=== PATIENT | male | born 1950 | race Caucasian/White ===

== ENCOUNTER → 2018-05-24 16:33 | Outpatient (CLI) | payer MEDICARE, OTHER, SELFPAY ==
[2018-05-24 18:29] LABS: Anion Gap 7 (5-15); BUN 16 mg/dL (7-18); BUN/Creat Ratio 11.7 RATIO (10-20); Calcium,Total 8.6 mg/dL (8.5-10.1); Chloride 104 mmol/L (98-107); Creatinine, Serum 1.37 mg/dL (0.70-1.30); EST Glomerular Filtration Rate 55 mL/min (>60); Est Glom Filt Rate - Afr Amer 67 mL/min (>60); Glucose 105 mg/dL (74-106); Potassium 4.2 mmol/L (3.5-5.1); Sodium Level 139 mmol/L (136-145)
== END ==
PROVIDERS: Family Provider Physician Assistant; PCP Physician Assistant; Referring Provider Urology; Visit Provider Urology
DX: R33.8 Other retention of urine (principal)
CPT/HCPCS: 36415; 80048

== ENCOUNTER → 2018-05-28 06:38 | Outpatient (CLI) | payer MEDICARE, OTHER, SELFPAY ==
--- NOTE | 2018-05-28 06:45 | CT_ITS ---
STUDY: CT ABDOMEN AND PELVIS WITH CONTRAST REASON FOR EXAM: Male, 67 years old. Hydronephrosis, prostate issues, catheter in place. RADIATION DOSAGE (If Supplied By Facility): CTDIvol = ( 20.63 ) mGy, DLP = ( 2116.36 ) mGycm TECHNIQUE: Transaxial images were obtained from the dome of the diaphragm to the symphysis pubis without oral contrast. 100ML ml of Isovue 300 contrast was administered. Sagittal and coronal images were reconstructed. Individualized dose optimization techniques were used for this CT. COMPARISON: None. FINDINGS: Body wall soft tissues: No acute process. Osseous structures: No acute process. Inferior chest: No acute process. Hepatobiliary: Normal. Pancreas: Moderate pancreatic atrophy. Spleen: Normal. Adrenal glands: Normal. Urogenital: Bilateral hydronephrosis grade 2 on the right, grade 3 on the left. No renal plethora or perinephric stranding. The hydronephrosis appears to be chronic. On the right, and left, there is ectasia of the ureters with thickening and increased conspicuity of the russell of each ureter which could potentially be associated with inflammation of ascending urinary tract infection but the appearance is nonspecific and may merely be the result of chronic hydroureter. Correlate clinically for any evidence of UTI. Melo catheter in place. There is severe circumferential thickening of wall the urinary bladder suspected to reflect cystitis. The prostate is enlarged, measuring approximately 5.4 cm craniocaudal, 5.1 cm anterior-posterior, 6.2 cm transverse. Symmetric and grossly normal seminal vesicles. Pelvic floor and sidewalls and retroperitoneum: No mass or adenopathy. Vasculature: No acute process. Stomach: No acute process. Small bowel and mesentery: No acute process. Large bowel: Normal appendix, large bowel and rectum. Free fluid or free air: None. CT/Abdomen/Pelvis WITH Contrast IMPRESSION: Marked circumferential thickening of the wall the urinary bladder. Hydronephrosis and hydroureter, likely associated with the bladder wall thickening contributing to partial UPJ obstructions, chronic appearance. There is no evidence of urolithiasis. Electronically Signed: Bryce Ames, at 17:53 EDT Tel , Service support ,
== END ==
PROVIDERS: Family Provider Family Medicine; PCP Family Medicine; Referring Provider Urology; Visit Provider Urology
DX: N13.30 Unspecified hydronephrosis (principal)
CPT/HCPCS: 74177; Q9967

== ENCOUNTER → 2018-06-03 08:58 | Outpatient (CLI) | payer MEDICARE, OTHER, SELFPAY ==
--- NOTE | 2018-06-03 | IMM_PTH ---
PATIENT: JULIANN ORTA LOC: [facility] U#:[id number] AGE/SX: 74/M ROOM: RE06/03/[address]: Dr. Joshua Billingsley MD : 1950 BED: DIS: SPEC #: [id number] RECD: 06/07/18 11:18 STATUS: JARETH IKM #: [id number] JIMMIE: 06/03/18 00:[address]: Joshua Billingsley DEPT: IMMUNOHISTOCHEMISTRY RECD BY: Monse Davis ENTERED: 06/07/18 11:20 SP TYPE: IMMUNO OTHR DR: Kat Miller, ACCOUNT SOLUTIONS ANALYST-C Tissues: A - PROSTATE RIGHT B - PROSTATE RIGHT C - PROSTATE RIGHT Procedures: 34BE12 (add) P40 (add) 34BE12 (initial) PHYSICIAN & INSTITUTION [place] [id number] SPECIMEN INFORMATION: Tissue Source: A - Right apex, B - Right mid, C - Right base Clinical Info: Elevated PSA Specimen Number: [id number] A-C CPT code: 49052, 50345 x5 METHODOLOGY: Deparaffinized sections of prefer/formalin-fixed tissue or PAP/DQ stained slides are incubated with monoclonal/polyclonal antibodies/oligonucleotide probes. Localization is made via biotin free immunoperoxidase method. Appropriate controls are performed and reacted as expected. Results on target cell population are indicated in the following table: RESULTS: ANTIBODY / CLONE RESULT Block A P40 (BC28) negative 34BE12 (34BE12) negative Block B P40 (BC28) negative 34BE12 (34BE12) negative Block C P40 (BC28) negative 34BE12 (34BE12) negative These tests were developed and their performance characteristics determined by [facility]. They may not have been cleared or approved by the U.S. Food and Drug Administration. The FDA has determined that such clearance or approval is not necessary. INTERPRETATION: A. Right prostate, apex, core biopsy: Adenocarcinoma. B. Right prostate, mid, core biopsy: Adenocarcinoma. C. Right prostate, base, core biopsy: A minute focus of adenocarcinoma. SJ:jacob 06/07/18
--- NOTE | 2018-06-03 | PROSBIL_PTH ---
PATIENT: JULIANN ORTA LOC: [facility] U#:[id number] AGE/SX: 74/M ROOM: RE06/03/[address]: Dr. Joshua Billingsley MD : 1950 BED: DIS: SPEC #: [id number] RECD: 06/03/18 16:00 STATUS: JARETH KIM #: [id number] JIMMIE: 06/03/18 00:[address]: Joshua Billingsley DEPT: SURGICAL PATHOLOGY RECD BY: Nora Root ENTERED: 06/04/18 11:25 SP TYPE: PROST BX JESUSITA DR: Kat Miller, SPLIT LEATHER DEPARTMENT SUPERVISOR-C Tissues: A - PROSTATE RIGHT B - PROSTATE RIGHT C - PROSTATE RIGHT D - PROSTATE LEFT E - PROSTATE LEFT F - PROSTATE LEFT Procedures: PROSTATE BX HEADER OPERATION: Prostate biopsy PRE-OP DIAGNOSIS: Elevated PSA TISSUE SUBMITTED: A - Right apex, B - Right mid, C - Right base, D - Left apex, E - Left mid, F - Left base MICROSCOPIC DIAGNOSIS A. Right prostate, apex, core biopsy: Prostatic adenocarcinoma: [place] grade: 3+3=6 Number of cores involved: 1 out of 2 Proportion of tissue involved: ~15% Perineural invasion: Not identified. Greatest tumor length: 0.5 cm, discontinuous. 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 See comment. B. Right prostate, mid, core biopsy: Prostatic adenocarcinoma: [place] grade: 3+3=6 Number of cores involved: 1 out of 1 Proportion of tissue involved: ~5% Perineural invasion: Not identified. Greatest tumor length: 0.1 cm See comment. C. Right prostate, base, core biopsy: A minute focus of prostatic adenocarcinoma: Ganesh grade: 3+3=6 Number of cores involved: 1 out of 1 Proportion of tissue involved: <5% Perineural invasion: Not identified. Greatest tumor length: <0.1 cm See comment. D. Left prostate, apex, core biopsy: Prostatic tissue, negative for malignancy. Acute and chronic inflammation. E. Left prostate, mid, core biopsy: Prostatic tissue, negative for malignancy. Moderate acute and chronic inflammation. F. Left prostate, base, core biopsy: Prostatic tissue, negative for malignancy. Moderate acute and chronic inflammation. SJ:jacob 06/07/18 COMMENT A-C. Immunohistochemistry ([id number]) supports the above diagnosis. Case has been reviewed in consultation with Dr. Ford who concurs with the above diagnosis. IDC:AM MICROSCOPIC DESCRIPTION Slides are reviewed. GROSS DESCRIPTION A - Received is one container designated prostate, right apex. The specimen consists of two elongated fragments of light payne-white soft tissue each measuring 0.8 cm in length and 0.1 cm in diameter. The specimen is totally submitted in one cassette. B - Received is one container designated prostate, right mid. The specimen consists of one elongated fragment of light payne-white soft tissue measuring 1.5 cm in length and 0.1 cm in diameter. The specimen is totally submitted in one cassette. C - Received is one container designated prostate, right base. The specimen consists of one elongated fragment of light payne-white soft tissue measuring 1 cm in length and 0.1 cm in diameter. The specimen is totally submitted in one cassette. D - Received is one container designated prostate, left apex. The specimen consists of one elongated fragment of light payne-white soft tissue measuring 1 cm in length and 0.1 cm in diameter. The specimen is totally submitted in one cassette. E - Received is one container designated prostate, left mid. The specimen consists of one elongated fragment of light payne-white soft tissue measuring 2 cm in length and 0.1 cm in diameter. The specimen is totally submitted in one cassette. F - Received is one container designated prostate, left base. The specimen consists of one elongated fragment of light payne-white soft tissue measuring 2 cm in length and 0.1 cm in diameter. The specimen is totally submitted in one cassette. / AM:jacob 06/04/18 TC:0 CPT: G0146 ADDENDUM ADDENDUM ADDENDUM ADDENDUM ADDENDUM ADDENDUM ADDENDUM ADDENDUM 07/12/2018 13:03 ADDENDUM 07/12/2018 13:03 ADDENDUM 07/12/2018 13:03 ADDENDUM 07/12/2018 13:03 ADDENDUM 07/12/2018 13:03 An order for Oncotype testing was received from Dr. Billingsley. This necessitated case review, block and slide selection by pathologist at [facility]. Genomic Prostate Score = 42 Results of the complete Oncotype testing ([facility] report) are viewable in EMR under: Reports - Pathology - Lab Pathology Report, Scanned.
== END ==
PROVIDERS: Family Provider Family Medicine; PCP Family Medicine; Referring Provider Urology; Visit Provider Urology
DX: C61 Malignant neoplasm of prostate (principal); N42.31 Prostatic intraepithelial neoplasia
CPT/HCPCS: 88305; 88341; 88342; G0416

== ENCOUNTER → 2018-06-14 12:18 | Outpatient (CLI) | payer MEDICARE, OTHER, SELFPAY ==
[2018-06-14 14:26] LABS: Anion Gap 10 (5-15); BUN 31 mg/dL (7-18); BUN/Creat Ratio 18.1 RATIO (10-20); Calcium,Total 9.3 mg/dL (8.5-10.1); Chloride 103 mmol/L (98-107); Creatinine, Serum 1.71 mg/dL (0.70-1.30); EST Glomerular Filtration Rate 43 mL/min (>60); Est Glom Filt Rate - Afr Amer 52 mL/min (>60); Glucose 137 mg/dL (74-106); Potassium 4.1 mmol/L (3.5-5.1); Sodium Level 141 mmol/L (136-145)
== END ==
PROVIDERS: Family Provider Family Medicine; PCP Family Medicine; Referring Provider Urology; Visit Provider Urology
DX: C61 Malignant neoplasm of prostate (principal)
CPT/HCPCS: 36415; 80048

== ENCOUNTER → 2018-06-18 09:05 | Outpatient (CLI) | payer MEDICARE, OTHER, SELFPAY ==
--- NOTE | 2018-06-18 09:08 | NM_ITS ---
CLINICAL: 67-year-old male with reported history of diffuse arthralgia. WHOLE BODY 99m Tc MDP RADIONUCLIDE BONE SCINTIGRAPHY COMPARISON: CT of the abdomen-pelvis report 05/28/2018 FINDINGS: Following the intravenous administration of 27.0 mCi of 99m Tc MDP, whole body bone images reveal: 1. Increased radiopharmaceutical concentration is identified in the acromioclavicular compartment of both shoulders, lateral glenohumeral compartment of the right shoulder, the bilateral wrists, left knee. 2. The remaining skeletal structures are scintigraphically unremarkable with bilateral kidneys and urinary bladder activity identified. There is prominence (hydronephrosis) of the right and left kidney collecting systems at the level of the renal pelvis. NM/Bone Scan Whole Body IMPRESSION: 1. The increase in radiopharmaceutical concentration identified in the bilateral shoulder and wrist articulations, left knee is most consistent with degenerative arthritis. 2. There is no definitive scintigraphic evidence of large articulation synovial inflammation and/or trauma-fracture on the current examination. Electronically Signed: Bryce Marcus DO at 13:31 EST Tel , Service support ,
== END ==
PROVIDERS: Family Provider Family Medicine; PCP Family Medicine; Referring Provider Urology; Visit Provider Urology
DX: C61 Malignant neoplasm of prostate (principal)
CPT/HCPCS: 78306

== ENCOUNTER 2018-09-22 11:06 | Day surgery (SDC) | payer MEDICARE, OTHER, SELFPAY ==
--- NOTE | 2018-09-21 16:08 | PCM.HP.BLA ---
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 ALLERGIES: None MEDICATIONS: Budesonide Pantoprazole Sodium 40 mg vial PSH: Cystoscopy - 05/24/2018 Prostate Needle Biopsy - 06/03/2018 Transrectal Biopsy US - 06/03/2018 NON- PSH: None PMH: Malignant neoplasm of prostate - 06/14/2018 ? Histology/Primary Site: Adenocarcinoma, no subtype (morphologic abnormality), Malignant neoplasm of prostate ? Meadow Score: 6 ? Clinical Staging: [id number] ? Diagnostic Confirmation: Positive histology ? Behaviour, Grade: Malignant, primary site, Not applicable ? Laterality: Bilateral ? 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 <DIV' Tobacco Use Assessment Completed: Used Tobacco in last 30 days? Smoking cessation counseling was provided. Does not use smokeless tobacco. Has never drank. Does not use drugs. Drinks 2 caffeinated drinks per day. Has not had a blood transfusion. REVIEW OF SYSTEMS: Constitutional: Patient denies fever, chills, weight loss, and weight gain. Gastrointestinal: hiatal hernia, esophageal EE. Genitourinary: Patient reports frequent urination and urinary retention. Patient denies get up at night to void, leakage of urine, blood in urine, frequent urinary tract infections, history of stones, difficulty starting stream, weak stream, and bedwetting. Notes: Reviewed previous review of systems 06/28/2018. No changes. VITAL SIGNS: 08/16/2018 04:24 PM Weight 205 lb / 92.99 kg Height 68 in / 172.72 cm BP 140/70 mmHg BMI 31.2 kg/m? - BMI Counseling was provided. MULTI-SYSTEM PHYSICAL EXAMINATION: Constitutional: Well-nourished. No physical deformities. Normally developed. Good grooming. Neck: Neck symmetrical, not swollen. Normal tracheal position. Respiratory: No labored breathing, no use of accessory muscles. Cardiovascular: Normal temperature, normal extremity pulses, no swelling, no varicosities. Lymphatic: No enlargement of neck, axillae, groin. Skin: No paleness, no jaundice, no cyanosis. No lesion, no ulcer, no rash. Neurologic / Psychiatric: Oriented to time, oriented to place, oriented to person. No depression, no anxiety, no agitation. Gastrointestinal: No mass, no tenderness, no rigidity, non obese abdomen. Eyes: Normal conjunctivae. Normal eyelids. Musculoskeletal: Normal gait and station of head and neck. PAST DATA REVIEWED: Source Of History: Patient Lab Test Review: PSA Records Review: Pathology Reports, Previous Patient Records Urine Test Review: Urinalysis X-Ray Review: C.T. Abdomen/Pelvis: Reviewed Films. Reviewed Report. Discussed With Patient. 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 Etiologies of prostate cancer were discussed with the patient. Treatment options including radical retropubic prostatectomy, robotic assisted laparoscopic prostatectomy, (did not recommend cryosurgery), external beam radiation therapy, brachytherapy radiation therapy, and watchful waiting were discussed at length with the patient. The Meadow score and amount of cancer present on the patients prostate biopsy pathology report was reviewed at length and in detail. Pathological grades of prostate cancer, stages of prostate cancer including organ confined, capsular invasion, locally invasive, local constanza spread, and distant metastatic spread, bony metastatic disease, and others were discussed at length. We discussed the recurrence rate of prostate cancer. Alternative treatment options were discussed with the patient in detail. All questions were answered. Main options discussed: Robotic Radical Prostatectomy - risk of erectile dysfunction and incontinence discussed, would recommend bilateral nerve sparing. Discussed risks of + margin and risk of surgery, recovery and what to expect. Radiation therapy: Brachytherapy, seeds and external beam radiation therapy discussed and side effects petroleum terminal plant operator, bleeding, fistula, exposure to radiation etc discussed. The patient will think about these treatment options and come back to the office to finalize their treatment plan. He will call me in a few week. will call him in a months if have not heard anything. Also consider Oncotype Dx if chooses . Notes: given rising psa and unfavorable oncotype score recommend we proceed with treatment. long discussion about surgery vs XRT side effects and expected outcomes. Patient wants to proceed with XRT plan for Spacer OAR in the or and markers.
[2018-09-22 11:29] VITALS: BP 158/89; PULSE 81; RESP 16; TEMP 37.1; O2SAT 99; BMI 26.6
[2018-09-22] MEDS: Cefazolin 2 GM in 0.9% Normal Saline 100 ML IV (14:00)
--- NOTE | 2018-09-22 14:06 | DCINST_ITS ---
Discharge Diet: Light diet - advance as tolerated Discharge Activity: Return to Normal Activity Allergies/Adverse Reactions: Allergies No Known Allergies Allergy (Verified 09/15/18 13:08) Medications to take at Discharge Liothyronine-Levothyroxine 1 cap PO DAILY 09/15/18 Multivitamin with Minerals [Multiple Vitamin] 1 each PO DAILY 09/15/18 Pantoprazole Sodium [Protonix] 40 mg PO DAILY 09/15/18 Renagen Detox 1 cap PO BID 09/15/18 Tamsulosin HCl [Flomax] 0.4 mg PO DAILY 09/15/18 Urotone 1 cap PO BID 09/15/18 Primary Care Physician: Kat Miller NP-C [Primary Care Provider] - Test Results: Test results from this visit will be discussed in further detail at your follow- up appointment, if applicable. Please Follow Up With: Joshua Billingsley MD When: in 2 weeks, please call to make an appointment.
--- NOTE | 2018-09-22 14:34 | PCM.OPRPT ---
Report of Operation Date of Procedure: 09/22/18 Pre-Operative Diagnosis: Prostate cancer Post-Operative Diagnosis: Prostate cancer in preparation for radiation therapy Surgery/Procedure Performed:: Placement of transperineal fiducial markers for radiation x3 placement of transperineal spacer organ at risk gel. Description of Surgical Findings:: 67-year-old male who prostate cancer he is elected to undergo radiation therapy for definitive treatment for his prostate cancer we talked about other options including surgery radiation brachii therapy observation and he wants to proceed with radiation treatments. Today were to taken the surgery to place the markers for radiation as requested by the radiation oncologist and also space spacer gel to separate the rectum from the prostate to help protect rectal toxic toxicity. 67-year-old male taken back to the operating room the smooth induction of general anesthesia anesthesia he was placed supine on the table Then in dorsal lithotomy position the perineum and penis testicles are prepped and draped in usual sterile fashion used a Ioban gel to hold up the testicles and penis I then placed a ultrasound probe into the rectum performed ultrasonography of the prostate the identified the mid part of the prostate the prostate apex the seminal vesicles the rectum the do not be his layer these are all seen on ultrasound I then placed my first clipping marker on the right side in the mid prostate second clipping marker in the left side of mid prostate and third clipping marker at the apex of the prostate after the 3 gold markers were placed we then prepared the spacer gel that was prepared by the manufactures instruction in the back table we then used our needle bevel tip down to advance below the prostate into the space that do not be his fascia I injected a little bit of injectable saline in the area created a space between the rectum and the prostate then once the needle was in proper position we then applied the gel to the needle and then we injected the gel matrix below the prostate above the rectum into 110 inject 10-second injection fashion once the injection was made and created a nice gel matrix between the rectum the prostate the gel was nice intact and informed quickly I could see the separation between the rectum and the prostate after the gel matrix was done we then pulled out the needle and this completed our procedure placement of these spacer markers and also split placement of the gel to protect the rectum during radiation should end dictation Type of Anesthesia:: General - Admit VTE Documentation VTE Present on Admission: No VTE Mechan Device Prophylaxis: SCD's
--- NOTE | 2018-09-22 14:38 | OP.PCM_ITS ---
Report of Operation Date of Procedure: 09/22/18 Pre-Operative Diagnosis: Prostate cancer Post-Operative Diagnosis: Prostate cancer in preparation for radiation therapy Surgery/Procedure Performed:: Placement of transperineal fiducial markers for radiation x3 placement of transperineal spacer organ at risk gel. Description of Surgical Findings:: 67-year-old male who prostate cancer he is elected to undergo radiation therapy for definitive treatment for his prostate cancer we talked about other options including surgery radiation brachii therapy observation and he wants to proceed with radiation treatments. Today were to taken the surgery to place the markers for radiation as requested by the radiation oncologist and also space spacer gel to separate the rectum from the prostate to help protect rectal toxic toxicity. 67-year-old male taken back to the operating room the smooth induction of general anesthesia anesthesia he was placed supine on the table Then in dorsal lithotomy position the perineum and penis testicles are prepped and draped in usual sterile fashion used a Ioban gel to hold up the testicles and penis I then placed a ultrasound probe into the rectum performed ultrasonography of the prostate the identified the mid part of the prostate the prostate apex the seminal vesicles the rectum the do not be his layer these are all seen on ultrasound I then placed my first lumber marker on the right side in the mid prostate second lumber marker in the left side of mid prostate and third lumber marker at the apex of the prostate after the 3 gold markers were placed we then prepared the spacer gel that was prepared by the manufactures instruction in the back table we then used our needle bevel tip down to advance below the prostate into the space that do not be his fascia I injected a little bit of injectable saline in the area created a space between the rectum and the prostate then once the needle was in proper position we then applied the gel to the needle and then we injected the gel matrix below the prostate above the rectum into 110 inject 10-second injection fashion once the injection was made and created a nice gel matrix between the rectum the prostate the gel was nice intact and informed quickly I could see the separation between the rectum and the prostate after the gel matrix was done we then pulled out the needle and this completed our procedure placement of these spacer markers and also split placement of the gel to protect the rectum during radiation should end dictation Type of Anesthesia:: General - Admit VTE Documentation VTE Present on Admission: No VTE Mechan Device Prophylaxis: SCD's
[2018-09-22 14:41] VITALS: BP 133/92; BP 158/89; PULSE 67; RESP 12; TEMP 36.6; O2SAT 95
[2018-09-22 14:45] VITALS: BP 125/84; BP 158/89; PULSE 76; RESP 16; O2SAT 95
[2018-09-22 15:00] VITALS: BP 138/89; BP 158/89; PULSE 80; RESP 16; O2SAT 95
[2018-09-22 15:05] VITALS: BP 139/87; BP 158/89; PULSE 64; RESP 16; TEMP 36.6; O2SAT 97
[2018-09-22 16:06] VITALS: BP 152/93; BP 158/89; PULSE 69; RESP 16; TEMP 36.4; O2SAT 99
== END 2018-09-22 16:11 | disposition home or self-care (01) ==
LOC: SDC 11:09 → AC 11:09
PROVIDERS: Family Provider Family Medicine; PCP Family Medicine; Referring Provider Urology; Visit Provider Urology
PROC: (CPT 55874; principal; 2018-09-22 13:10)
DX: C61 Malignant neoplasm of prostate (principal); N31.9 Neuromuscular dysfunction of bladder, unspecified; K21.9 Gastro-esophageal reflux disease without esophagitis; Z79.899 Other long term (current) drug therapy; Z87.891 Personal history of nicotine dependence; E07.9 Disorder of thyroid, unspecified
CPT/HCPCS: 55876; J7120; J2405

== ENCOUNTER → 2018-10-06 11:55 | Outpatient (CLI) | payer MEDICARE, OTHER, SELFPAY ==
[2018-09-22 11:29] VITALS: BMI 26.6
[2018-10-05 11:48] LABS: Absolute Lymphocyte Count 1.01 X10^3/ul (0.83-4.51); Absolute Neutrophil Count 2.2 X10^3/uL (2.0-7.7); Basophil# 0.02 X10^3/uL; Basophil% 0.5 % (0-1); Eosinophil# 0.07 X10^3/uL; Eosinophils% 1.9 % (0-5); Hematocrit 45.1 % (40-54); Hemoglobin 14.6 g/dl (13.0-16.5); Lymphocyte # 1.01 X10^3/ul (4.0); Lymphocyte % 27.4 % (19-41); Mean Corp Hgb Conc 32.4 g/gl (32-36); Mean Corpuscular Hgb 31.9 pg (27.0-32.0); Mean Corpuscular Volume 98.7 fL (80-94); Mean Platelet Vol. 9.1 fl (6.2-12.0); Monocyte# 0.35 X10^3/uL; Monocyte% 9.5 % (0-10); Neutrophil # 2.23 X10^3/uL (2.7-7.7); Neutrophil % 60.4 % (47-70); Platelet Count 183 K/mm3 (150-450); RBC Distribution Width SD 45.7 fl (35.1-43.9); Red Blood Count 4.57 M/mm3 (4.6-6.2); White Blood Count 3.7 K/mm3 (4.4-11.0)
[2018-10-05 11:50] LABS: POSITIVE COUNT NO; POSITIVE DIFFERENTIAL NO
[2018-10-05 11:51] LABS: POSITIVE MORPHOLOGY NO
[2018-10-05 12:47] LABS: Creatinine, Serum 1.38 mg/dL (0.70-1.30); EST Glomerular Filtration Rate 55 mL/min (>60); Est Glom Filt Rate - Afr Amer 66 mL/min (>60); PSA,Total- Diagnostic 3.78 ng/mL (0.0-4.0)
--- NOTE | 2018-10-06 11:57 | CT_ITS ---
STUDY: CT PELVIS WITH CONTRAST REASON FOR EXAM: Male, 67 years old. History of prostate cancer. This is a radiation treatment planning examination. RADIATION DOSAGE (If Supplied By Facility): CTDIvol = ( 24.62 ) mGy, DLP = ( 838.00 ) mGycm TECHNIQUE: Transaxial imaging of the pelvis was performed without oral contrast. Isovue 300 100 IV/Oral was administered intravenously. Individualized dose optimization techniques were used for this CT. COMPARISON: Comparison is made with prior examination May 28, 2018. FINDINGS: The urinary bladder is distended. The bladder wall is not thickened at this time. There is evidence of irregularity and filling defects at the bladder base. There appears to be a frond-like mass appearance. Radiation seeds are seen within the prostate. The prostate gland is enlarged with indentation at the bladder base. Normal visualized small intestine. Normal visualized colon. There is no pelvic fluid. There is no pelvic lymphadenopathy or mass lesion. Normal visualized pelvic arteries. Normal abdominal wall. Degenerative changes of the hip joints. CT/CT Pelvis W/CONT Therapy IMPRESSION: The bladder is distended. The previously seen diffuse bladder wall thickening is not seen at this time. Polypoid mass is persistent at the bladder base. The prostate is enlarged with indentation at the bladder base. Electronically Signed: Adi Zarate, at 10:41 EST , Service support ,
== END ==
PROVIDERS: Family Provider Family Medicine; PCP Family Medicine; Referring Provider Radiology Radiation Oncology; Visit Provider Radiology Radiation Oncology
DX: C61 Malignant neoplasm of prostate (principal); Z01.818 Encounter for other preprocedural examination
CPT/HCPCS: 36415; 51600; 72193; 82565; 84153; 85025; Q9967

== ENCOUNTER → 2019-01-10 | Outpatient (CLI) | payer MEDICARE, OTHER, SELFPAY ==
[2019-01-10 18:06] LABS: PSA,Total- Diagnostic 1.67 ng/mL (0.0-4.0)
== END | disposition home or self-care (01) ==
LOC: LAB 16:55
PROVIDERS: Referring Provider Urology; Visit Provider Urology
DX: C61 Malignant neoplasm of prostate (principal)
CPT/HCPCS: 36415; 84153

== ENCOUNTER → 2020-01-10 16:33 | Outpatient (CLI) | payer MEDICARE, OTHER, SELFPAY | PROVIDERS: Referring Provider Urology; Visit Provider Urology | DX: C61 Malignant neoplasm of prostate (principal) | CPT/HCPCS: 36415; 84153; G0103 ==

== ENCOUNTER → 2020-09-20 14:57 | Outpatient (CLI) | payer MEDICARE, OTHER, SELFPAY ==
[2020-09-20 15:58] LABS: Anion Gap 3 (5-15); BUN 23 mg/dL (7-18); BUN/Creat Ratio 19.2 RATIO (10-20); Calcium,Total 9.5 mg/dL (8.5-10.1); Chloride 107 mmol/L (98-107); EST Glomerular Filtration Rate 64 mL/min (>60); Est Glom Filt Rate - Afr Amer 77 mL/min (>60); Glucose 88 mg/dL (74-106); Sodium Level 140 mmol/L (136-145)
== END ==
PROVIDERS: PCP Nurse Practitioner Primary Care; Referring Provider Urology; Visit Provider Urology
DX: C61 Malignant neoplasm of prostate (principal)
CPT/HCPCS: 36415; 80048